=== PATIENT | female | born 1970 | race Caucasian/White ===

== ENCOUNTER 2020-08-14 10:30 | Emergency (ER) | payer OTHER ==
[~2020-08-14] VITALS: Ht 157.5 cm; Wt 74.0 kg
== END 2020-08-14 11:28 | disposition home or self-care (01) ==
LOC: FSED 11:15
DX: M25.561 Pain in right knee (principal); S80.01XA Contusion of right knee, initial encounter; W10.8XXA Fall (on) (from) other stairs and steps, initial encounter; Y93.01 Activity, walking, marching and hiking; M71.561 Other bursitis, not elsewhere classified, right knee; I10 Essential (primary) hypertension
CPT/HCPCS: 99282